=== PATIENT | female | born 1990 | race Caucasian/White ===

== ENCOUNTER → 2020-11-06 | Outpatient (CLI) | payer BC ==
[~2020-11-06] MED LIST: KYLE19.5 IU
== END ==
LOC: M LABSMTC 08:49
PROVIDERS: ATTEND Anesthesiology
DX: Z01.812 Encounter for preprocedural laboratory examination (principal); Z20.822 Contact with and (suspected) exposure to COVID-19

== ENCOUNTER 2020-11-11 08:36 | Day surgery (SDC) | payer BC ==
[~2020-11-11] VITALS: Ht 160 cm; Wt 67.5 kg
[~2020-11-11 08:36] MED LIST changes: +LIDOCAINE 1% MDV 20ML VIAL SQ PRN; +LR 1,000 ML IV ONE; +ceFAZolin SOD 1 GM in D5W MINI-BAG PLUS 50 ML IV ONE
[2020-11-11] MEDS ORDERED: LIDOCAINE 2% 100MG/5ML SDV (FOR ANES.) As Ordered ONE (08:41)
[2020-11-11] MEDS ORDERED: dexameTHASONE 4 MG/ML 1ML VIAL (J1100 PER 1MG) As Ordered ONE (08:41)
[2020-11-11] MEDS ORDERED: ONDANSETRON 4MG/2ML VIAL As Ordered ONE (08:41)
[2020-11-11] MEDS ORDERED: MIDAZOLAM INJ 2MG/2ML VIAL (J2250 PER 1MG) As Ordered ONE (08:41)
[2020-11-11] MEDS ORDERED: ROCURONIUM BROMIDE 50 MG/5 ML VIAL As Ordered ONE ×3 (08:41→13:42)
[2020-11-11] MEDS ORDERED: fentaNYL 250 MCG/5 ML INJECTION (J3010) As Ordered ONE (08:41)
[2020-11-11] MEDS ORDERED: propofoL 200 MG/20 ML VIAL As Ordered ONE (08:41)
[2020-11-11 09:11] LABS: HEMATOCRIT 43.4 % (36.0-47.0); HEMOGLOBIN 14.3 g/dl (12.0-15.5); MEAN CORPUSCULAR HEMOGLOBIN 32.9 pg (27.0-33.0); MEAN CORPUSCULAR HGB CONC 32.9 g/dl (32.0-36.5); PLATELET COUNT, AUTOMATED 217 10^3/uL (150-450); RED BLOOD COUNT 4.34 10^6/uL (4.00-5.40); WHITE BLOOD COUNT 5.2 10^3/uL (4.0-10.0)
[2020-11-11] MEDS ORDERED: BUPIVACAINE LIPOSOME/PF 1.3% 20ML VIAL (13.3MG/ML)(EXPAREL)(C9290 PER1MG) As Ordered ONE (10:05)
[2020-11-11] MEDS ORDERED: BACITRACIN PWD 50,000 UNITS VIAL As Ordered ONE (10:05)
[2020-11-11] MEDS ORDERED: METOCLOPRAMIDE INJ 10MG/2ML VIAL (J2765 PER 1) As Ordered ONE (11:32)
[2020-11-11] MEDS ORDERED: ACETAMINOPHEN 1000MG 100ML IV BTL (OFIRMEV) (J0131 PER 10MG) As Ordered ONE (11:32)
[2020-11-11] MEDS ORDERED: SUGAMMADEX SODIUM 500 MG/5 ML VIAL (BRIDION) As Ordered ONE (11:32)
[2020-11-11] MEDS ORDERED: HYDROmorphone HCL 2 MG/ML 1ML VIAL (J1170) As Ordered ONE (11:45)
[2020-11-11] MEDS ORDERED: ePHEDrine SULFATE 25 MG/5 ML(5MG/ML) SYRINGE As Ordered ONE (12:24)
--- NOTE | 2020-11-11 14:22 | ROOPDOC ---
[facility] Report Of Operation Report of Operation DATE OF PROCEDURE: 11/11/20 PREOPERATIVE DIAGNOSIS: Bilateral breast hypertrophy POSTOPERATIVE DIAGNOSIS: same FINDINGS: large breasts PROCEDURE: Bilateral breast reduction SURGEON: Dr Redd ANESTHESIA: General SPECIMENS: Right breast 226gm, Left breast 230gm ESTIMATED BLOOD LOSS: 75 cc REPLACED: none DRAINS: 10 mm GAY x 2 COMPLICATIONS: none POSTOPERATIVE CONDITION: stable ANITA REDD DO Nov 11, 2020 14:22
[2020-11-11] MEDS ORDERED: ONDANSETRON 4MG/2ML VIAL IV PRN ×2 (14:25→15:00)
[2020-11-11] MEDS ORDERED: ACETAMINOPHEN TAB 650MG DOSE (2X325MG) PO PRN (14:25)
[2020-11-11] MEDS ORDERED: PERCOCET 5MG/325MG TAB PO PRN (14:25)
--- NOTE | 2020-11-11 14:28 | ROOPDOC ---
[facility] Report Of Operation Report of Operation DATE OF PROCEDURE: 11/11/20 PREOPERATIVE DIAGNOSIS: Bilateral breast hypertrophy POSTOPERATIVE DIAGNOSIS: same FINDINGS: large breasts PROCEDURE: Bilateral breast reduction SURGEON: Dr Redd ANESTHESIA: General SPECIMENS: Right breast 226 gm, Left breast 230 gm ESTIMATED BLOOD LOSS: 75 cc REPLACED: none DRAINS: 10 mm GAY x 2 COMPLICATIONS: none POSTOPERATIVE CONDITION: stable DESCRIPTION OF PROCEDURE: This is a 29-year-old female who upper back and neck pain worsened by large breasts. She wears 34 triple D bra. She is scheduled for bilateral breast reduction. Risks, benefits, and alternatives were discussed with the patient in detail, and she is ready to proceed. The day of surgery, she was marked in the upright position and informed consent was obtained. She measured left side 30 cm from sternal notch to nipple and 29 cm right side, IMF at 21 cm bilaterally. She was brought into the operating room and placed in the supine position. Preoperative antibiotics were given. Sequential pneumatic stocking were placed on the lower calves. General ane sthesia was induced. She was prepped and draped in the usual sterile fashion. We started our procedure on the right side. Her nipple areolar complex was outlined 42 mm in diameter, and the patient was marked according superior medial pedicle. We started our incision by scoring the nipple areolar complex area, and then dissection was continued until the inferior lateral portion of the breast was resected. Hemostasis was obtained using electrocautery. The pedicle was de- epithelialized using Ruiz scissors, good perfusion to the nipple at all times. Wound was irrigated with Bacitracin solution. We used Exparel 6 cc for local anesthesia to infiltrate in the Pectoralis muscle as well as the breast tissue. Than pedicle was turned superior to its new location at 21 cm from sternal notch. The mound was re-created using conforming 0 Vicryl sutures. Pillars were closed with interrupted 3-0 Monocryl sutures. The vertical limb was 6 cm. Excess tissue inferiorly was measured and resected, creating the horizontal scar. Nipple area complex was brought into view through the new opening and sutured in place with 3-0 and 4-0 Monocryl sutures and a 5-0 plain. A 10 mm Fareed-Sanz drain was placed through the lateral portion of the horizontal incision. Then we turned our attention to the left side. Mirror procedure was carried out. Again, resection was done according to superior-medial pedicle using electrocautery and PEEK cautery. Hemostasis was obtained. The pedicle was in good viable condition. Exparel was infiltrated through the pectoralis muscle and the breast tissue 6 cc. Than pedicle was turned superior to its new location at 21 cm from sternal notch. The mound was re-created using conforming 0 Vicryl sutures. Pillars were closed with interrupted 3-0 Monocryl sutures. The vertical limb was 6 cm. Excess tissue inferiorly was measured and resected, creating the horizontal scar. Nipple area complex was brought into view through the new opening and sutured in place with 3-0 and 4-0 Monocryl sutures and a 5-0 plain gut suture in interrupted fashion. A 10 mm Fareed-Sanz drain was placed through the lateral portion of the horizontal incision. Remaining Exparel injected in the horizontal incision. Total Exparel use 20 cc. Resected tissue sent to pathology in two specimens right and left breast tissue. Right breast 226grams, left breast to 30 grams. Dressings were applied to vertical and horizontal incision: Prineo. Nipples areolar complex: Xeroform and a bulky dressing with a surgical bra. Patient was extubated in the operating room without difficulty and was transferred to the recovery room in stable condition. ANITA REDD DO Nov 11, 2020 14:28
[2020-11-11] MEDS ORDERED: ESMOLOL INJ 100MG/10ML VIAL As Ordered ONE (14:35)
[2020-11-11] MEDS ORDERED: LR 1,000 ML IV SCH (15:00)
[2020-11-11] MEDS ORDERED: oxyCODONE 5MG TAB PO PRN (15:00)
[2020-11-11] MEDS ORDERED: fentaNYL 100 MCG/2 ML INJECTION (J3010) IV PRN (15:00)
[2020-11-11] MEDS: LR 1,000 ML IV SCH (16:49)
[2020-11-11 16:50] VITALS: BP 111/66
[2020-11-11 17:20] VITALS: BP 111/65
[2020-11-11 18:20] VITALS: BP 108/64
[2020-11-11] MEDS: ceFAZolin SOD 1 GM in D5W MINI-BAG PLUS 50 ML IV SCH (18:38)
[2020-11-11 19:20] VITALS: BP 107/63
[2020-11-11] MEDS: KETOROLAC TROMETHAMINE 10 MG TAB PO PRN (20:00)
[2020-11-11 20:26] VITALS: BP 107/61
[2020-11-12 01:31] VITALS: BP 101/55
[2020-11-12] MEDS: KETOROLAC TROMETHAMINE 10 MG TAB PO PRN ×2 (02:00→10:28)
[2020-11-12] MEDS: ceFAZolin SOD 1 GM in D5W MINI-BAG PLUS 50 ML IV SCH ×2 (02:00→10:22)
[2020-11-12] MEDS: LR 1,000 ML IV SCH ×2 (02:01→05:26)
[2020-11-12 05:28] VITALS: BP 111/61
--- NOTE | 2020-11-12 09:51 | IPNPDOC ---
Subjective General Date Seen: Nov 12, 2020 Subject Chief Complaint/History The patient is a 29-year-old female admitted with a reason for visit of Bilateral Breast Hypertrophy. Patient is s/p breast reduction POD 1. Doing well. States she got her "bearing back". Pain controlled with Toradol. Current Medications Current Medications Current Medications Medications (Trade) Dose Ordered Sig/Tammy Route PRN Reason Start Time Stop Time Status Last Admin Dose Admin Acetaminophen (Tylenol Tab) 650 mg Q6H PRN PO MILD PAIN (PS 1-4) 11/11/20 14:25 Cefazolin Sodium 1 gm/Dextrose 50 ml @ 100 mls/hr Q8H IV 11/11/20 19:00 11/12/20 02:00 Fentanyl Citrate (Sublimaze) 25 mcg Q5MP PRN IV PAIN LEVEL 5-10 11/11/20 15:00 11/11/20 16:00 DC Ketorolac Tromethamine (ToRADol) 10 mg Q6HP PRN PO MODERATE PAIN (PS 5-7) 11/11/20 14:25 11/16/20 14:24 11/12/20 02:00 Lactated Ringer's 1,000 ml @ 75 mls/hr [id number] IV 11/11/20 14:25 11/12/20 05:26 Lactated Ringer's 1,000 ml @ 80 mls/hr [id number] IV 11/11/20 15:00 11/11/20 16:00 DC Lidocaine HCl (LIDOCAINE 1% MDV 20ml) 0.1 ml ONCE PRN SQ DISCOMFORT BEFORE IV START 11/11/20 06:00 11/11/20 14:56 DC Ondansetron HCl (ZOFRAN INJection) 4 mg Q4H PRN IV NAUSEA OR VOMITING 11/11/20 14:25 11/11/20 16:52 Ondansetron HCl (ZOFRAN INJection) 4 mg Q4HP PRN IV NAUSEA OR VOMITING 11/11/20 15:00 11/11/20 16:00 DC Oxycodone HCl (Roxicodone, Oxyir) 5 mg ASDIRECTED PRN PO PAIN LEVEL 1-4 11/11/20 15:00 11/11/20 16:00 DC Oxycodone/ Acetaminophen (Percocet 5mg/ 325mg Tablet) 2 tab Q4HP PRN PO PAIN LEVEL 8-10 11/11/20 14:25 Allergies Coded Allergies: No Known Allergies (Verified Allergy, Unknown, 11/04/20) Objective Physical Examination Examination GENERAL APPEARANCE:Patient seen, laying in bed, awake, alert, and oriented. Comfortable, in no acute distress. SKIN: Warm and moist. BREAST: Right and left soft, non-tender incisions intact. GAY drains: 20/20 cc/24 hr. NAC: Viable, warm, symmetrical, mild post-op ecchymosis, no expanding hematoma. HEENT: Normocephalic, atraumatic. [place] palpebral conjunctiva, anicteric sclerae. Lips and mucosa appear moist. NECK: Supple, no thyromegaly. No obvious jugular venous distention. LUNGS: Clear to auscultation bilaterally. No wheezing appreciated. HEART: No chest wall abnormalities. Regular rate and rhythm with no murmurs appreciated. ABDOMEN: Abdomen is soft, non-tender, non-distended. EXTREMITIES: No edema identified. No calf tenderness. Vital Signs Vital Signs Date Time Temp Pulse Resp B/P (MAP) Pulse Ox O2 Delivery O2 Flow Rate FiO2 11/12/20 05:28 98.0 85 18 111/61 (78) 96 Room Air 11/11/20 16:10 2.0 I&Os I&O- Last 24 Hours up to 6 AM 11/12/20 06:00 Intake Total 1750 ml Output Total 35 ml Balance 1715 ml Impression S/p BBR POD 1. Doing well. Dressing changed. Stable for discharge. F/up plastic surgery. Plan / VTE VTE Prophylaxis Ordered?: Yes ANITA REDD DO Nov 12, 2020 09:51
[2020-11-12 10:00] VITALS: BP 120/70
[2020-11-12] MEDS ORDERED: KETO10TAB PO (10:52)
== END 2020-11-12 12:03 | disposition home or self-care (01) ==
LOC: M SDC 08:36 → M MS5PR 16:40 → M SDC 11-12 12:03
PROVIDERS: ATTEND Plastic Surgery Surgery of the Hand
DX: N62 Hypertrophy of breast (principal)
CPT/HCPCS: 19318; 36415; 81025; 85027; 88305; 96365; 96375; 96376; C9290; J0131; J0690; J1100; J1170; J2250; J2405; J2765; J3010